=== PATIENT | female | born 1960 | race Hispanic/Latino ===

== ENCOUNTER → 2018-03-22 | Outpatient (CLI) | payer OTHER | LOC: MAMMO 08:22 | PROVIDERS: ATTEND Internal Medicine | DX: Z12.31 Encounter for screening mammogram for malignant neoplasm of breast (principal) | CPT/HCPCS: 77067 ==

== ENCOUNTER → 2024-09-05 | Outpatient (REF) | payer MEDICARE | LOC: US 08:34 | PROVIDERS: ATTEND Nurse Practitioner | DX: K43.9 Ventral hernia without obstruction or gangrene (principal) | CPT/HCPCS: 76705 ==